=== PATIENT | male | born 1960 | race Caucasian/White ===

== ENCOUNTER 2021-02-07 13:09 | Inpatient (IN) | payer OTHER ==
[2021-02-07 13:43] VITALS: BMI 27.3
[2021-02-07 14:31] LABS: BASO % 1.3 % (0-2.0); EOS % 3.6 % (0-4.5); HEMATOCRIT 30.3 % (35.4-49); HEMOGLOBIN 10.4 GM/dL (11.7-16.9); LYMPH % 7.3 % (8-40); MCH 31.1 pg (25.7-33.7); MCHC 34.2 g/dl (32.0-35.9); MEAN CELL VOLUME 91.1 fl (80-96); MEAN PLT VOLUME 7.1 fl (7.5-11.1); NEUT % 81.8 % (42.8-82.8); PLATELET COUNT 497 10^3/uL (134-434); RBC 3.33 M/mm3 (4.00-5.60); RDW 14.3 % (11.9-15.9); WHITE BLOOD COUNT 12.5 K/mm3 (4.0-10.0)
[2021-02-07 14:58] LABS: CALCIUM 8.7 mg/dL (8.5-10.1)
[2021-02-07 14:59] LABS: BLOOD UREA NITROGEN 52.3 mg/dL (7-18)
[2021-02-07 15:02] LABS: CREATININE 2.4 mg/dL (0.55-1.3)
[2021-02-07] MEDS ORDERED: LACTATED RINGERS SOLUTION 1000 ML INFUS.BAG IV ONE (15:43)
[2021-02-07] MEDS ORDERED: NALOXONE HCL 0.4 MG/ML VIAL IVPUSH PRN (16:19)
[2021-02-07 16:33] LABS: N-TERMINAL BNP 110.5 pg/ml (5-125)
[2021-02-07] MEDS: SODIUM CHLORIDE 1,000 ML IV SCH (18:26)
[2021-02-07] MEDS ORDERED: clonazePAM 0.5 MG TABLET PO PRN (18:30)
[2021-02-07] MEDS: INSULIN SLIDING SCALE (NOVOLOG) 1 VIAL SQ SCH (21:13)
[2021-02-07] MEDS: oxyCODONE HCL 5 MG TABLET PO PRN (22:10)
[2021-02-07] MEDS: MELATONIN 5 MG TABLETS PO SCH (22:10)
[2021-02-07] MEDS: ACETAMINOPHEN 325 MG TABLET (FP) PO PRN (22:13)
[2021-02-07] MEDS: GABAPENTIN 300 MG CAPSULE PO SCH (22:14)
[2021-02-07] MEDS: HEPARIN NA (PORCINE) 5,000 UNITS/ML 1ML VIAL SQ SCH (22:15)
[2021-02-07 22:24] LABS: URINE APPEARANCE CLEAR; URINE BILIRUBIN NEGATIVE (NEGATIVE); URINE COLOR YELLOW; URINE GLUCOSE (UA) 100 (NEGATIVE); URINE KETONE NEGATIVE (NEGATIVE)
[2021-02-07 22:25] LABS: URINE LEUK ESTERASE NEGATIVE (NEGATIVE); URINE NITRITE NEGATIVE (NEGATIVE); URINE PROTEIN 30 (NEGATIVE); URINE UROBILINOGEN 0.2 mg/dL (0.2-1.0)
[2021-02-07 22:26] LABS: EPI CELLS 2 /uL (0-25.1); HYALINE CASTS 3 /uL (0-3.1); URINE BACTERIA 1 /uL (0-1359); URINE RBC 20 /uL (0-23.9); URINE WBC 3 /uL (0-25.8)
[2021-02-08] MEDS: INSULIN SLIDING SCALE (NOVOLOG) 1 VIAL SQ SCH ×4 (06:26→21:42)
[2021-02-08] MEDS: SODIUM CHLORIDE 1,000 ML IV SCH ×2 (06:28→17:33)
[2021-02-08] MEDS: HEPARIN NA (PORCINE) 5,000 UNITS/ML 1ML VIAL SQ SCH ×3 (06:29→21:16)
[2021-02-08] MEDS: GABAPENTIN 300 MG CAPSULE PO SCH ×3 (06:29→21:18)
[2021-02-08 08:05] LABS: HEMATOCRIT 25.9 % (35.4-49); HEMOGLOBIN 8.8 GM/dL (11.7-16.9); MCH 31.4 pg (25.7-33.7); MCHC 33.8 g/dl (32.0-35.9); MEAN CELL VOLUME 92.8 fl (80-96); MEAN PLT VOLUME 7.7 fl (7.5-11.1); PLATELET COUNT 377 10^3/uL (134-434); RBC 2.79 M/mm3 (4.00-5.60); RDW 14.5 % (11.9-15.9); WHITE BLOOD COUNT 6.6 K/mm3 (4.0-10.0)
[2021-02-08 08:10] LABS: ALBUMIN 2.8 g/dl (3.4-5.0); CALCIUM 8.1 mg/dL (8.5-10.1)
[2021-02-08 08:11] LABS: BLOOD UREA NITROGEN 45.9 mg/dL (7-18); MAGNESIUM 2.3 mg/dL (1.8-2.4)
[2021-02-08 08:13] LABS: CREATININE 1.1 mg/dL (0.55-1.3)
[2021-02-08 08:14] LABS: PHOSPHOROUS 2.8 mg/dL (2.5-4.9)
[2021-02-08 08:15] LABS: BILIRUBIN,TOTAL 0.5 mg/dL (0.2-1); TOT PROT 5.3 g/dl (6.4-8.2)
[2021-02-08] MEDS: NICOTINE 14 MG/24 HOURS TOPICAL PATCH TD SCH (09:32)
[2021-02-08] MEDS: THIAMINE HCL 100 MG TABLET (FP) PO SCH (09:32)
[2021-02-08] MEDS: FOLIC ACID 1 MG TABLET (FP) PO SCH (09:32)
[2021-02-08] MEDS: oxyCODONE HCL 5 MG TABLET PO PRN ×2 (09:36→19:51)
[2021-02-08] MEDS: amLODIPine BESYLATE 10 MG TABLET (FP) PO SCH (09:36)
[2021-02-08] MEDS: ACETAMINOPHEN 325 MG TABLET (FP) PO PRN (09:36)
[2021-02-08 16:41] LABS: RETICULOCYTES 1.26 % (0.5-1.5)
[2021-02-08] MEDS ORDERED: PNEUMOC 13-VAL CONJ-DIP CRM/PF 0.5 ML DISP.SYRIN IM ONE (18:35)
[2021-02-08] MEDS ORDERED: PNEUMOCOCCAL 23 VACCINE 0.5 ML VIAL IM ONE (19:00)
[2021-02-08 20:25] LABS: COCAINE, UR NEGATIVE (NEGATIVE); METHADONE, UR NEGATIVE (NEGATIVE); URINE AMPHETAMINES NEGATIVE (NEGATIVE); URINE BARBITURATES NEGATIVE (NEGATIVE)
[2021-02-08 20:26] LABS: PHENCYCLIDINE,URINE NEGATIVE (NEGATIVE); URINE BENZODIAZEPINES NEGATIVE (NEGATIVE)
[2021-02-08 20:28] LABS: OPIATES, URI POSITIVE (NEGATIVE)
[2021-02-08] MEDS: MELATONIN 5 MG TABLETS PO SCH (21:17)
[2021-02-09] MEDS: GABAPENTIN 300 MG CAPSULE PO SCH ×2 (05:51→13:12)
[2021-02-09] MEDS: HEPARIN NA (PORCINE) 5,000 UNITS/ML 1ML VIAL SQ SCH ×2 (05:51→13:13)
[2021-02-09] MEDS: INSULIN SLIDING SCALE (NOVOLOG) 1 VIAL SQ SCH ×3 (06:57→16:01)
[2021-02-09] MEDS: THIAMINE HCL 100 MG TABLET (FP) PO SCH (09:26)
[2021-02-09] MEDS: NICOTINE 14 MG/24 HOURS TOPICAL PATCH TD SCH (09:26)
[2021-02-09] MEDS: FOLIC ACID 1 MG TABLET (FP) PO SCH (09:26)
[2021-02-09] MEDS: amLODIPine BESYLATE 10 MG TABLET (FP) PO SCH (09:26)
[2021-02-09] MEDS: ACETAMINOPHEN 325 MG TABLET (FP) PO PRN (09:32)
[2021-02-09] MEDS: oxyCODONE HCL 5 MG TABLET PO PRN (09:32)
[2021-02-09 14:26] VITALS: BP 162/69; PULSE 87; TEMP 99.1
[2021-02-09] MEDS ORDERED: oxyCODONE HCL 5 MG TABLET PO ONE (16:18)
[2021-02-09] MEDS ORDERED: ACETAMINOPHEN 325 MG TABLET (FP) PO ONE (16:19)
== END 2021-02-09 16:30 | disposition other institution (70) | DRG 812 ==
LOC: JER 13:09 → JERBED 15:53 → OBSVTOIN 15:53 → J7W 18:13
PROVIDERS: ATTEND Internal Medicine
DX: T40.2X1A Poisoning by other opioids, accidental (unintentional), initial encounter (principal); Y92.89 Other specified places as the place of occurrence of the external cause; I10 Essential (primary) hypertension; E11.9 Type 2 diabetes mellitus without complications; N17.9 Acute kidney failure, unspecified; D72.829 Elevated white blood cell count, unspecified; R16.1 Splenomegaly, not elsewhere classified; E78.5 Hyperlipidemia, unspecified; F41.8 Other specified anxiety disorders; F43.10 Post-traumatic stress disorder, unspecified; F17.210 Nicotine dependence, cigarettes, uncomplicated
CPT/HCPCS: 36415; 71045-TC-FY; 76775-TC; 80048; 80053; 80307; 81003; 82550; 82553; 82728; 82962; 83036; 83540; 83550; 83735; 83880; 84100; 85025; 85027; 85045; 90732; 93005; 93010; 97116-GP; 97162-GP; 99285-25; C9803; G0009; J1644; U0003; U0005

== ENCOUNTER 2021-02-09 17:04 | Inpatient (IN) | payer OTHER ==
[2021-02-09 17:41] VITALS: BMI 23.4
[2021-02-09] MEDS ORDERED: guaiFENesin 200 MG/10 ML 10 ML UNIT-DOSE CUPS PO PRN (19:19)
[2021-02-09] MEDS ORDERED: MAGNESIUM HYDROX 2400MG/30ML ORAL SUSPENSION 30 ML CUP PO PRN (19:19)
[2021-02-09] MEDS ORDERED: NICOTINE POLACRILEX 2 MG GUM BC PRN (19:19)
[2021-02-09] MEDS ORDERED: LOPERAMIDE HCL 2 MG CAPSULE PO PRN (19:19)
[2021-02-09] MEDS ORDERED: IBUPROFEN 400 MG TABLET (FP) PO PRN (19:19)
[2021-02-09] MEDS ORDERED: P-EPHED 60MG/TRIPROLIDI 2.5MG TABLET PO PRN (19:19)
[2021-02-09] MEDS ORDERED: MAGNESIUM CITRATE 300 ML BOTTLE PO PRN (19:19)
[2021-02-09] MEDS ORDERED: MAG HYDROX/AL HYDROX/SIMETH 30 ML UNIT-DOSE CUP PO PRN (19:19)
[2021-02-09] MEDS: MELATONIN 5 MG TABLETS PO SCH (21:47)
[2021-02-09] MEDS ORDERED: TUBERCULIN PPD 5 TU/0.1ML VIAL ID ONE (21:47)
[2021-02-09] MEDS: THIAMINE HCL 100 MG TABLET (FP) PO SCH (21:47)
[2021-02-09] MEDS: NICOTINE 7 MG/24 HOURS TOPICAL PATCH TD SCH (21:48)
[2021-02-09] MEDS: hydrOXYzine PAMOATE 25 MG CAPSULE (FP) PO SCH (21:48)
[2021-02-09] MEDS ORDERED: PATIENT'S OWN MEDICATION (NON-FORMULARY) (Melatonin [Melatonin] 5 MG Tablet) PO SCH (22:00)
[2021-02-10] MEDS: hydrOXYzine PAMOATE 25 MG CAPSULE (FP) PO SCH ×2 (07:04→10:06)
[2021-02-10 09:58] LABS: ALBUMIN 3.4 g/dl (3.4-5.0)
[2021-02-10 09:59] LABS: HEMATOCRIT 31.2 % (35.4-49); HEMOGLOBIN 10.7 GM/dL (11.7-16.9); MCH 31.3 pg (25.7-33.7); MCHC 34.2 g/dl (32.0-35.9); MEAN CELL VOLUME 91.7 fl (80-96); MEAN PLT VOLUME 7.9 fl (7.5-11.1); PLATELET COUNT 429 10^3/uL (134-434); RBC 3.41 M/mm3 (4.00-5.60); RDW 14.3 % (11.9-15.9)
[2021-02-10 10:00] LABS: CALCIUM 8.8 mg/dL (8.5-10.1)
[2021-02-10 10:04] LABS: CREATININE 0.6 mg/dL (0.55-1.3)
[2021-02-10 10:05] LABS: TOT PROT 6.5 g/dl (6.4-8.2)
[2021-02-10] MEDS: LISINOPRIL 20 MG TABLET PO SCH (10:06)
[2021-02-10] MEDS: amLODIPine BESYLATE 10 MG TABLET (FP) PO SCH (10:06)
[2021-02-10] MEDS: NICOTINE 7 MG/24 HOURS TOPICAL PATCH TD SCH (10:06)
[2021-02-10] MEDS: PRENATAL VITAMINS W/ FOLIC ACID TABLET (FP) PO SCH (10:06)
[2021-02-10] MEDS: ACETAMINOPHEN 325 MG TABLET (FP) PO PRN ×3 (10:08→21:03)
[2021-02-10] MEDS: ASPIRIN 325 MG TABLET PO SCH (10:08)
[2021-02-10] MEDS ORDERED: ASPIRIN 81 MG CHEWABLE TABLETS ONE (10:08)
[2021-02-10 10:13] LABS: PH,URINE 7.5 (5.0-8.0); URINE APPEARANCE Clear; URINE BILIRUBIN Negative (NEGATIVE); URINE COLOR Yellow; URINE GLUCOSE (UA) Negative (NEGATIVE); URINE KETONE Negative (NEGATIVE); URINE LEUK ESTERASE Negative (NEGATIVE); URINE NITRITE Negative (NEGATIVE); URINE PROTEIN Negative (NEGATIVE); URINE UROBILINOGEN 0.2 mg/dL (0.2-1.0)
[2021-02-10 10:19] LABS: BILIRUBIN,TOTAL 0.3 mg/dL (0.2-1); BLOOD UREA NITROGEN 13.3 mg/dL (7-18)
[2021-02-10] MEDS: MELATONIN 5 MG TABLETS PO SCH (21:02)
[2021-02-10] MEDS: THIAMINE HCL 100 MG TABLET (FP) PO SCH (21:02)
[2021-02-10] MEDS: traZODone HCL 100 MG TABLET (FP) PO SCH (21:03)
[2021-02-11] MEDS: LISINOPRIL 20 MG TABLET PO SCH (10:17)
[2021-02-11] MEDS: PRENATAL VITAMINS W/ FOLIC ACID TABLET (FP) PO SCH (10:17)
[2021-02-11] MEDS: amLODIPine BESYLATE 10 MG TABLET (FP) PO SCH (10:17)
[2021-02-11] MEDS: ASPIRIN 325 MG TABLET PO SCH (10:18)
[2021-02-11] MEDS: NICOTINE 7 MG/24 HOURS TOPICAL PATCH TD SCH (10:18)
[2021-02-11] MEDS: hydrOXYzine PAMOATE 50 MG CAPSULE (FP) PO PRN ×2 (10:19→13:51)
[2021-02-11] MEDS: ACETAMINOPHEN 325 MG TABLET (FP) PO PRN ×4 (10:21→21:59)
[2021-02-11] MEDS: MELATONIN 5 MG TABLETS PO SCH (21:59)
[2021-02-11] MEDS: THIAMINE HCL 100 MG TABLET (FP) PO SCH (21:59)
[2021-02-11] MEDS: traZODone HCL 100 MG TABLET (FP) PO SCH (21:59)
[2021-02-12 08:33] VITALS: BP 156/76; PULSE 86; TEMP 98.6
[2021-02-12] MEDS: hydrOXYzine PAMOATE 50 MG CAPSULE (FP) PO PRN (09:42)
[2021-02-12] MEDS: amLODIPine BESYLATE 10 MG TABLET (FP) PO SCH (09:42)
[2021-02-12] MEDS: PRENATAL VITAMINS W/ FOLIC ACID TABLET (FP) PO SCH (09:42)
[2021-02-12] MEDS: LISINOPRIL 20 MG TABLET PO SCH (09:42)
[2021-02-12] MEDS: ASPIRIN 325 MG TABLET PO SCH (09:43)
[2021-02-12] MEDS: NICOTINE 7 MG/24 HOURS TOPICAL PATCH TD SCH (09:43)
[2021-02-12] MEDS: ACETAMINOPHEN 325 MG TABLET (FP) PO PRN (09:44)
== END 2021-02-12 11:25 | disposition left against medical advice (07) | DRG 770 ==
LOC: YASAS 17:04 → Y3W 20:24
PROVIDERS: ADMIT Allergy & Immunology; ATTEND Allergy & Immunology
PROC: HZ42ZZZ Group Counseling for Substance Abuse Treatment, Cognitive-Behavioral (ICD-10-PCS; principal; 2021-02-09)
DX: F11.20 Opioid dependence, uncomplicated (principal); F17.210 Nicotine dependence, cigarettes, uncomplicated; F32.9 Major depressive disorder, single episode, unspecified; F19.24 Other psychoactive substance dependence with psychoactive substance-induced mood disorder; F19.280 Other psychoactive substance dependence with psychoactive substance-induced anxiety disorder; I10 Essential (primary) hypertension; E11.9 Type 2 diabetes mellitus without complications; J44.9 Chronic obstructive pulmonary disease, unspecified; E78.5 Hyperlipidemia, unspecified; B18.2 Chronic viral hepatitis C; K21.9 Gastro-esophageal reflux disease without esophagitis; R00.0 Tachycardia, unspecified; Z86.59 Personal history of other mental and behavioral disorders; Z86.718 Personal history of other venous thrombosis and embolism; Z91.013 Allergy to seafood; Z88.8 Allergy status to other drugs, medicaments and biological substances; Z86.69 Personal history of other diseases of the nervous system and sense organs
CPT/HCPCS: 36415; 80053; 81003; 82962; 85027; 86780; C9803; U0003; U0005